=== PATIENT | male | born 1995 | race Caucasian/White ===

== ENCOUNTER 2020-04-26 12:15 | Emergency (ER) | payer SELFPAY ==
[2020-04-26 12:20] VITALS: BP 159/73
[2020-04-26] MEDS ORDERED: BUPIVACAINE HCL 0.5 % INJ/PF 30 ML SDV INJ ONE (12:49)
[2020-04-26] MEDS ORDERED: LIDOCAINE 1% INJ-PF (10 MG/ML) 30 ML SDV INJ ONE (12:49)
--- NOTE | 2020-04-26 12:58 | ER Document Report ---
ED General - General Chief Complaint: Foot Pain Stated Complaint: TOE PAIN Time Seen by Provider: 04/26/20 12:46 Mode of Arrival: Ambulatory Information source: Patient Notes: Patient is a 24-year-old male coming in today with left great toe ingrown nail. Patient reports numerous episodes of this same problem in the past. No purulent or bloody drainage. No fevers or chills. No diabetes. - Related Data Allergies/Adverse Reactions: No Known Allergies Allergy (Verified 04/26/20 12:52) Past Medical History - Social History Smoking Status: Unknown if Ever Smoked Family History: None Review of Systems - Review of Systems Notes: Constitutional: No fevers. No chills. EENT: No eye redness. No eye pain. No ear pain. No sore throat. Cardiovascular: No chest pain. No palpitations. Respiratory: No cough. No shortness of breath. No respiratory distress. Gastrointestinal: No abdominal pain. No nausea, vomiting, or diarrhea. Genitourinary: Atraumatic. No lesions. No pain. No discharge. Musculoskeletal: Left great toe pain and redness Skin: No rash or lesions. Lymphatic: No swollen lymph nodes. Neurologic: No headache. No syncope. Psychiatric: No suicidal or homicidal ideation. Physical Exam - Vital signs Vitals: Temp Pulse Resp BP Pulse Ox 98.4 F 86 16 159/73 H 99 04/26/20 12:19 04/26/20 12:19 04/26/20 12:19 04/26/20 12:19 04/26/20 12:19 - Notes Notes: General: Well-developed, well-nourished. In no acute distress. Non-toxic appearing. Cardiac: Well-perfused. Regular rate and rhythm. No murmurs, rubs, or gallops. Pulmonary: No respiratory distress. No cyanosis. Bilateral lung fiels are clear to auscultation. Abdominal: Non-distended. Non-rigid. Bowels sounds are present in all four quadrants. No guarding or rebound. HEENT: Head is atraumatic. Conjunctivae not reddened. No tearing. PERRL. EOMI. Orbits atraumatic. No periorbital swelling or erythema. Oropharynx is without erythema, swelling, or exudates. Neck: Supple. No adenopathy. No meningismus. Dermatologic: Warm with good turgor. No rash. Atraumatic. Chest: Atraumatic. No chest wall tenderness to palpation. Musculoskeletal: Left great toenail medial edge embedded into the adjacent soft tissues causing redness swelling and induration. Exquisitely tender to palpate. Purulent or bloody drainage. Genitourinary: Examination deferred Neurologic: No gross neurologic deficits. Psychiatric: Normal mood. Course - Vital Signs Vital signs: Temp Pulse Resp BP Pulse Ox 98.4 F 86 16 159/73 H 99 04/26/20 12:19 04/26/20 12:19 04/26/20 12:19 04/26/20 12:19 04/26/20 12:19 Procedures - Nail Trephanation/Removal Left Great toe Time completed: 13:54 Nail Trepanation/Removal Location: Left great toe medial aspect Betadine prep applied: No Method of Drainage: Other - Medial third of the nail was removed with scissors Notes: 04/26/20 13:54 Digital block of the left great toe with 5 mL plain lidocaine and 5 mL half percent Marcaine. Total of 8 mL injected. The skin was prepped with Betadine prior to injecting. After complete anesthesia was achieved the medial third of the nail was excised successfully. Dry sterile dressing applied by nurse. Tolerated well. Discharge - Discharge Clinical Impression: Ingrown toenail of left foot, Elevated blood pressure reading Condition: Good Disposition: HOME, SELF-CARE Instructions: Ingrown Nail ([facility]) Additional Instructions: Keep the toe clean with soap and water as you normally would. Apply a topical antibiotic ointment to the area to prevent sticking. Apply a bulky gauze bandage and wear loosefitting shoes until this area heals. Forms: Elevated Blood Pressure
== END 2020-04-26 14:37 | disposition home or self-care (01) ==
LOC: ER 12:15
DX: L60.0 Ingrowing nail (principal); M79.675 Pain in left toe(s); R03.0 Elevated blood-pressure reading, without diagnosis of hypertension
CPT/HCPCS: 99282